=== PATIENT | male | born 1990 | race Caucasian/White ===

== ENCOUNTER 2019-01-02 11:18 | Emergency (ER) | payer SELFPAY ==
[~2019-01-02] VITALS: Ht 172.7 cm; Wt 95.3 kg
[2019-01-02 11:23] VITALS: BP_SYST 137
--- NOTE | 2019-01-02 11:23 | NUR ---
Patient to ER bed 4 to gown for evaluation. Side rails up. Report given to UBALDO Guillory.
--- NOTE | 2019-01-02 11:32 | NUR ---
ER Dr. Burgess at bedside examining patient.
--- NOTE | 2019-01-02 11:38 | NUR ---
Pt AAOx4 presents to ED via wheelchair c/o 11/21 pain to L rib x 3 days. Pt denies trauma/cough/N/V/D/abdominal pain/SOB. No deformities/discoloration/discharge noted from site. Skin pink dry and warm, breathing even and unlabored. No other injuries/complaints per pt/noted. Will continue to monitor.
[2019-01-02] MEDS ORDERED: KETOROLAC TROMETHAMINE 60 MG/2 ML VIAL IM ONE (11:45)
--- NOTE | 2019-01-02 11:48 | NUR ---
Radiology at bedside for CXR
--- NOTE | 2019-01-02 12:15 | NUR ---
Patient asleep in [facility], attempted to reassess pain
--- NOTE | 2019-01-02 13:00 | NUR ---
Attempted to wake patient for discharge teaching, unsuccessful.
[2019-01-02 13:10] VITALS: BP_SYST 137
--- NOTE | 2019-01-02 13:10 | NUR ---
Patient awake for discharge, Cong rn at bedside for assistance waking patient Patient given written and verbal discharge instructions and verbalizes understanding. ER MD discussed with patient the results and treatment provided. Patient in stable condition. ID arm band removed. Rx of Motrin given. Patient educated on pain management and to follow up with PMD. Pain Scale 0/10. Opportunity for questions provided and answered. Medication side effect fact sheet provided.
== END 2019-01-02 13:10 | disposition home or self-care (01) ==
LOC: EDBD 11:18 → SED 11:18
DX: M94.0 Chondrocostal junction syndrome [Tietze] (principal); R03.0 Elevated blood-pressure reading, without diagnosis of hypertension
CPT/HCPCS: 71045; 96372; 99283; J1885